=== PATIENT | female | born 1950 | race Caucasian/White ===

== ENCOUNTER → 2017-11-20 | Outpatient (CLI) | payer MEDICARE, BC | END | disposition home or self-care (01) | LOC: HKI 09:06 | DX: Z47.1 Aftercare following joint replacement surgery (principal); Z96.643 Presence of artificial hip joint, bilateral | CPT/HCPCS: 73522 ==

== ENCOUNTER → 2018-11-14 | Outpatient (CLI) | payer MEDICARE, BC | END | disposition home or self-care (01) | LOC: HKI 08:57 | DX: Z47.1 Aftercare following joint replacement surgery (principal); C50.919 Malignant neoplasm of unspecified site of unspecified female breast; Z96.643 Presence of artificial hip joint, bilateral; Z51.11 Encounter for antineoplastic chemotherapy | CPT/HCPCS: 73523 ==